=== PATIENT | male | born 2000 ===

== ENCOUNTER 2021-04-18 09:00 | Emergency (ER) | payer BC ==
[2021-04-18 09:23] VITALS: BP 144/83; PULSE 93
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
== END 2021-04-18 09:30 | disposition home or self-care (01) ==
LOC: LB.ED 09:00
DX: M54.6 Pain in thoracic spine (principal); Z72.0 Tobacco use
CPT/HCPCS: 99283